=== PATIENT | male | born 1985 | race Caucasian/White ===

== ENCOUNTER → 2021-07-31 07:23 | Outpatient (CLI) | payer OTHER, SELFPAY ==
--- NOTE | ~2021-07-31 | MR_ITS ---
EXAMINATION: MR lumbar spine wo/w con EXAM DATE: 07/31/2021 08:41 INDICATION: Low back, left leg pain. TECHNIQUE: Multi-sequential, multiplanar MR images of the lumbar spine were obtained without contrast . Sagittal T1, T2, T2 fat saturation images. Axial T2 weighted images. Axial T1 weighted sequence. Patient was then injected with 20 mL Multihance intravenous contrast and reimaged. Postcontrast axi al and sagittal T1-weighted fat saturation sequences were obtained. There are no prior studies for co mparison. FINDINGS: Mild to moderate L4-5 disc disease, mild at L5-S1. There is evidence of prior left L4 hemil aminotomy. The conus medullaris terminates at the T12-L1 level and has normal signal intensity and mo rphology. The vertebral bodies are aligned in the AP dimension. There are no suspicious marrow signa l abnormalities. Paraspinal soft tissue is unremarkable. There are no areas of abnormal enhancement o n the post contrast images. Level by level evaluation: T12-L1: Disc does not extend beyond the endplate margin. Facet arthropathy: None. Neural foraminal stenosis: No stenosis. Central canal stenosis: No stenosis. L1-L2: Disc does not extend beyond the endplate margin. Facet arthropathy: None. Neural foraminal stenosis: No stenosis. Central canal stenosis: No stenosis. L2-L3: Disc does not extend beyond the endplate margin. Facet arthropathy: Mild. Neural foraminal stenosis: No stenosis. Central canal stenosis: No stenosis. L3-L4: There is a mild diffuse disc bulge. Facet arthropathy: Mild. Neural foraminal stenosis: No stenosis. Central canal stenosis: No stenosis. L4-L5: There is a mild to moderate diffuse disc bulge, annular fissure with superimposed moderate-siz ed left central protrusion. Facet arthropathy: Mild. Neural foraminal stenosis: Mild to moderate left, mild right. Central canal stenosis: Moderate left lateral recess, overall mild to moderate. Mass effect on ramón sing left L5 nerve root. L5-S1: Disc does not extend beyond the endplate margin. Facet arthropathy: Mild. Neural foraminal stenosis: Mild left. Central canal stenosis: No stenosis. IMPRESSION: 1. L4-5 disc bulge, small superimposed left central protrusion causing moderate lateral recess narro wing and mass effect on traversing L5 nerve root. Reviewed, dictated and finalized at location B. IMPRESSION: 1. L4-5 disc bulge, small superimposed left central protrusion causing moderat e lateral recess narrowing and mass effect on traversing L5 nerve root.
[2021-07-31 08:14] LABS: Estimated Glomerular Filt Rate > 60
== END ==
PROVIDERS: PCP Physician Assistant Medical; Visit Provider Physician Assistant Medical
DX: M51.26 Other intervertebral disc displacement, lumbar region (principal)
CPT/HCPCS: 72158; A9577